=== PATIENT | male | born 1990 | race Caucasian/White ===

== ENCOUNTER 2023-01-25 10:01 | Outpatient (CLI) | payer OTHER, SELFPAY ==
--- NOTE | ~2023-01-25 | US_ITS ---
EXAMINATION: US thyroid DATE: 01/25/2023 10:33 INDICATION: Thyroid nodule, goiter. TECHNIQUE: Multiple ultrasound images of the thyroid were obtained. COMPARISON: 01/23/2019 FINDINGS: The right thyroid lobe measures 6.1 x 2.5 x 2.7 cm. The left thyroid lobe measures 5.3 x 2.2 x 2.5 c m. The isthmus measures 0.8 cm. Normal echotexture and echogenicity throughout the thyroid gland. 2.1 cm solid, hypoechoic, wider than tall, lobulated right inferior thyroid gland nodule without interna l echogenicity (BI-RADS 4, moderately suspicious). IMPRESSION: 2.1 cm, moderately suspicious right inferior thyroid gland nodule, recommend FNA for further evaluati on. Reviewed, dictated and finalized at [facility]. IMPRESSION: 2.1 cm, moderately suspicious right inferior thyroid gland nodule, recommend FN A for further evaluation.
--- NOTE | ~2023-01-25 | US_ITS ---
EXAMINATION: US right upper quadrant DATE: 01/25/2023 10:34 INDICATION: Elevated liver enzymes. TECHNIQUE: Multiple grayscale and Doppler ultrasound images of the right upper quadrant were obtained . COMPARISON: None available. FINDINGS: The visualized portions of the pancreas are normal. The liver is mildly enlarged with sligh tly increased echogenicity and normal echotexture. No surface nodularity. Normal hepatopetal flow in the main portal vein. The gallbladder is normal with no abnormal wall thickening, pericholecystic flu id or stones. The common bile duct measures 5 mm. There was no sonographic Ramirez sign. IMPRESSION: Mildly echogenic liver, most commonly due to steatosis but also can be seen with hepatitis and fibros is. Mild hepatomegaly. Reviewed, dictated and finalized at location K. IMPRESSION: Mildly echogenic liver, most commonly due to steatosis but also can be seen wit h hepatitis and fibrosis. Mild hepatomegaly.
== END 2023-01-25 10:02 ==
LOC: MICIMG 10:02
PROVIDERS: PCP Family Medicine; Visit Provider Internal Medicine Endocrinology, Diabetes & Metabolism
DX: E04.1 Nontoxic single thyroid nodule (principal); R74.01 Elevation of levels of liver transaminase levels
CPT/HCPCS: 76536; 76705

== ENCOUNTER 2023-03-04 12:20 | Outpatient (CLI) | payer OTHER, SELFPAY ==
--- NOTE | ~2023-03-04 | US_ITS ---
EXAMINATION: US FNA w image guidance DATE: 03/04/2023 13:30 INDICATION: Nontoxic enlarging single thyroid nodule TECHNIQUE: A time-out was performed to verify the patient's name, date of , and procedure to be performed . The procedure and its benefits and risks were discussed with the patient. Risks specifically discus sed included bleeding and infection. The patient understood the risks and agreed to proceed. The neck was prepped and draped in the usual sterile manner. 3 mL 1% lidocaine was used for local anesthesia . 6 passes were made with a 25G needle into the lesion. Appropriate needle location was documented with continuous sonographic guidance. A sterile bandage was applied. There were no immediate compli cations. FINDINGS: Grayscale ultrasound images demonstrate biopsy needles advanced into a 2.6 x 1.9 x 1.5 cm wider than tall solid hypoechoic TI RADS 4 nodule with lobular margins and without internal echogenic foci. IMPRESSION: 1. Successful ultrasound-guided fine needle aspiration of a 2.6 cm TI RADS 4 right thyroid nodule. Reviewed, dictated and finalized at location A. IMPRESSION: 1. Successful ultrasound-guided fine needle aspiration of a 2.6 cm TI RADS 4 r ight thyroid nodule.
== END 2023-03-04 12:21 | disposition home or self-care (01) ==
PROVIDERS: PCP Family Medicine; Visit Provider Internal Medicine Endocrinology, Diabetes & Metabolism
DX: E04.1 Nontoxic single thyroid nodule (principal)
CPT/HCPCS: 10005; 88173; 88305

== ENCOUNTER 2023-04-25 10:47 | Outpatient (CLI) | payer OTHER, SELFPAY ==
--- NOTE | ~2023-04-25 | MR_ITS ---
EXAMINATION: MR brain/brain stem wo/w con DATE: 04/25/2023 11:29 INDICATION: Headache, unspecified. TECHNIQUE: Magnetic resonance imaging (MRI) of the brain and brainstem was performed without and with 20 mL MultiHance intravenous contrast. COMPARISON: None. FINDINGS: There is no intracranial hemorrhage, acute infarction, or abnormal intracranial mass lesion . The ventricles are normal in size. There is mucosal thickening in the paranasal sinuses. The orbits are normal. The mastoid air cells are normal. IMPRESSION: 1. Normal brain. Reviewed, dictated and finalized at location A. IMPRESSION: 1. Normal brain.
== END 2023-04-25 10:48 ==
PROVIDERS: PCP Family Medicine; Visit Provider Nurse Practitioner Family
DX: R51.9 Headache, unspecified (principal)
CPT/HCPCS: 70553; A9577

== ENCOUNTER 2023-04-28 11:44 | Emergency (ER) | payer OTHER, SELFPAY ==
[2023-04-28 12:26] VITALS: BP 164/77; PULSE 90; RESP 20; TEMP 36; O2SAT 100
--- NOTE | 2023-04-28 13:32 | PC.NURSE ---
no answer when pt called x 2.
== END 2023-04-28 14:25 | disposition left against medical advice (07) ==
PROVIDERS: PCP Family Medicine
DX: R10.10 Upper abdominal pain, unspecified (principal)
CPT/HCPCS: 99199